=== PATIENT | female | born 2000 | race Caucasian/White ===

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

== ENCOUNTER 2021-06-17 15:41 | Emergency (ER) | payer MEDICAID ==
[~2021-06-17] VITALS: Ht 165.1 cm; Wt 119.2 kg
[~2021-06-17 15:41] MED LIST changes: +ARIP2TAB35 PO
[2021-06-17 15:50] VITALS: BP 138/79
--- NOTE | 2021-06-17 15:52 | PHYS DOC ---
Past History Past Medical History: Depression, Other Past Surgical History: No Surgical History, Other Smoking: Non-smoker Alcohol Use: None Drug Use: None Adult General HPI HPI Patient is a 21-year-old female presenting for right-sided lower back pain. Reports she was working at her job, [employer], where without any obvious trauma, mechanism of injury or other exposure she started experiencing right lower back pain after her shift. Reports pain is deep above her hip bone and focal to right lower back area without radiation. Timing of symptoms has been constant but exacerbates with certain twisting and positional movements. No red flag signs or symptoms of back pain such as fever, history of chronic steroid or IV drug use, unintentional weight loss, cancer, bladder and/or bowel incontinence etc. Review of Systems Review of Systems Fourteen body systems of review of systems have been reviewed. See HPI for pertinent positives and negative responses, other adamson all other systems are negative, non-pertinent or non-contributory Allergies Allergies Allergies Coded Allergies Type Severity Reaction Last Updated Verified No Known Drug Allergies 06/03/13 No Physical Exam Physical Exam Constitutional: Well developed, well nourished and obese, no acute distress, non-toxic appearance. HENT: Normocephalic, atraumatic, bilateral external ears normal, oropharynx moist, no oral exudates, nose normal. Eyes: PERRLA, EOMI, conjunctiva normal, no discharge. Neck: Normal range of motion, no tenderness, supple, no stridor. Cardiovascular: Heart rate regular, sinus rhythm, no murmurs rubs or gallops Lungs & Thorax: Bilateral breath sounds clear to auscultation Abdomen: Bowel sounds normal, soft and protuberant, no tenderness, no masses, no pulsatile masses. Nonsurgical abdomen, no peritoneal signs Skin: Warm, dry, no erythema, no rash. Back: No midline tenderness or step-off, no CVA tenderness. Palpable tenderness present to right paralumbar muscle superior to sacrum. Negative straight leg raise. Extremities: No tenderness, no cyanosis, no clubbing, ROM intact, no edema. Neurologic: Alert and oriented X 3, no saddle anesthesia, 2+ patellar reflexes to bilateral lower extremities, normal motor & sensory function, no focal deficits noted. Psychologic: Affect normal, judgement normal, mood normal. Current Patient Data Vital Signs Vital Signs Date Time Temp Pulse Resp B/P (MAP) Pulse Ox O2 Delivery O2 Flow Rate FiO2 06/17/21 15:50 98.2 87 18 138/79 (98) 100 Vital Signs Date Time Temp Pulse Resp B/P (MAP) Pulse Ox O2 Delivery O2 Flow Rate FiO2 06/17/21 15:50 98.2 87 18 138/79 (98) 100 EKG EKG [] Heart Score C/O Chest Pain: No Risk Factors: Risk Factors: DM, Current or recent (<one month) smoker, HTN, HLP, family history of CAD, obesity. Risk Scores: Risk Factors: DM, Current or recent (<one month) smoker, HTN, HLP, family history of CAD, obesity. Course & Med Decision Making Course & Med Decision Making ABCs, history and physical examination non-concerning. There are no red flag signs of back pain present. I have low suspicion for malignancy/mets, acute Spinal Fracture, Vertebral Osteomyelitis, Epidural Abscess, Infected or Obstructing Kidney Stone. Their presentation appears most likely to be secondary to non-emergent musculoskeletal etiology vs non-emergent disc herniation. ED Workup: Defer imaging and labwork for outpatient follow up at this time. IM orphenadrine administered with instructions for NSAIDs and/or Tylenol for pain control with new prescription for muscle relaxer Disposition: Discharge. Strict return precautions discussed with patient with full understanding. Advised patient to follow up promptly with primary care provider Tiffanie Disclaimer Tiffanie Disclaimer This electronic medical record was generated, in whole or in part, using a voice recognition dictation system. Departure Departure: Impression: Primary Impression: Back pain Disposition: HOME / SELF CARE / HOMELESS Condition: STABLE Referrals: PCPNATALIE (PCP) Patient Instructions: Back Exercises, Back Pain, Adult Additional Instructions: You were evaluated in the Emergency Department today for back pain. Your evaluation suggests no acute abnormalities which require further intervention at this time. Your pain is most likely due to to a musculoskeletal cause that should improve with supportive care. - Move around as tolerated but avoiding heavy lifting. ``Bed rest is not recommended nor is it the best treatment for low back pain. - Medications will help control your discomfort: - -Ibuprofen (800 mg every 8 hours for pain) with food. - -Tylenol - Do not drink alcohol, drive a car, operate machinery, or get up on ladders or heights when taking any prescribed pain medications. - Do not drive home if you received prescribed pain medications here in the ED. Return to the ED immediately if you develop any of the following problems: - Leaking urine or difficulty urinating; - Inability to control your bowels; - New numbness or weakness in your legs or numbness between your legs; - Inability to walk - Fever Scripts Cyclobenzaprine Hcl (CYCLOBENZAPRINE HCL) 5 Mg Tablet 1 TAB PO QHS for muscle spasms, #15 TAB Prov: JESSICA MANCUSO DO 06/17/21 JESSICA MANCUSO DO Jun 17, 2021 15:52
[2021-06-17] MEDS ORDERED: ORPHENADRINE CITRATE 60 MG/2 ML VIAL. IM ONE (16:15)
[2021-06-17] MEDS ORDERED: CYCL5TAB PO (16:16)
[2021-06-18] MEDS ORDERED: CEPH500C PO (15:01)
== END 2021-06-17 16:38 | disposition home or self-care (01) ==
LOC: ER 15:41
DX: M54.59 Other low back pain (principal)
CPT/HCPCS: 96372; 99283; J2360

== ENCOUNTER 2021-06-18 13:36 | Emergency (ER) | payer MEDICAID ==
[~2021-06-18] VITALS: Ht 165.1 cm; Wt 125.5 kg
[~2021-06-18 13:36] MED LIST changes: +CYCL5TAB PO
[2021-06-18] MEDS ORDERED: KETOROLAC 60 MG/2 ML VIAL. IM ONE (14:00)
[2021-06-18] MEDS ORDERED: ORPHENADRINE CITRATE 60 MG/2 ML VIAL. IM ONE (14:00)
--- NOTE | 2021-06-18 14:13 | PHYS DOC ---
Past History Past Medical History: Depression, Other Additional Past Medical Histor: pots (STUART ALBERTS APRN) Past Surgical History: No Surgical History (STUART ALBERTS APRN) Smoking: Non-smoker Alcohol Use: None Drug Use: None (STUART ALBERTS APRN) General Adult EDM: Chief Complaint: BACK PAIN OR INJURY HPI: HPI: Patient is a 21-year-old female who presents to the emergency department for right lower back pain that radiates into her buttock and down her leg. Patient reports that her symptoms started 2 days ago. Patient was seen in this emergency department yesterday and given muscle relaxer. She reports that she took the muscle relaxer last night but not today. She states that that in addition with Tylenol ibuprofen is not helping her pain. She rates her pain 6 out of 10. Last menstrual period was May 09 she reports no chance of . Patient denies any trauma, saddle anesthesias or loss of bowel or bladder, dysuria, hematuria. (STUART ALBERTS APRN) Review of Systems: Review of Systems: Constitutional: negative unless reported in HPI Eyes: negative unless reported in HPI HENT: negative unless reported in HPI Respiratory: negative unless reported in HPI Cardiovascular: negative unless reported in HPI GI: negative unless reported in HPI : negative unless reported in HPI Musculoskeletal: negative unless reported in HPI Integument: negative unless reported in HPI Neurologic: negative unless reported in HPI Endocrine: negative unless reported in HPI Lymphatic: negative unless reported in HPI Psychiatric: negative unless reported in HPI (STUART ALBERTS APRN) Allergies: Allergies: Allergies Coded Allergies Type Severity Reaction Last Updated Verified No Known Drug Allergies 06/17/21 No (STUART ALBERTS APRN) Physical Exam: PE: Constitutional: Well developed, well nourished, no acute distress, non-toxic appearance. [] HENT: Normocephalic, atraumatic, bilateral external ears normal, oropharynx m oist, no oral exudates, nose normal. [] Eyes: PERRL, EOMI, conjunctiva normal, no discharge. [] Neck: Normal range of motion, no bony spinal tenderness, no step-offs or deformities supple, no stridor. [] Cardiovascular: Normal peripheral perfusion Lungs & Thorax: Normal work of breathing, no tachypnea Abdomen: Obese Skin: Warm, dry, no erythema, no rash. [] Back: No spinal tenderness, right paraspinal lumbar tenderness with palpation, muscle spasm noted, positive right straight leg raise Extremities: No tenderness, no cyanosis, no clubbing, ROM intact, no edema. [] Neurologic: Alert and oriented X 3, normal motor function, normal sensory function, no focal deficits noted. [] Psychologic: Affect normal, judgement normal, mood normal. [] (STUART ALBERTS APRN) Current Patient Data: Labs: Laboratory Tests Test 06/18/21 14:00 06/18/21 14:08 Urine Collection Type Clean catch Urine Color Yellow Urine Clarity Hazy Urine pH 7.5 Urine Specific [place] 1.020 Urine Protein Neg Urine Glucose (UA) Neg mg/dL Urine Ketones (Stick) Neg mg/dL Urine Blood Neg Urine Nitrite Neg Urine Bilirubin Neg Urine Urobilinogen Dipstick 0.2 mg/dL Urine Leukocyte Esterase Trace Urine RBC 0 /HPF Urine WBC 1-4 /HPF Urine Squamous Epithelial Cells Mod /LPF Urine Amorphous Sediment Present /HPF Urine Bacteria Few /HPF Bedside Urine HCG, Qualitative hcg negative Current Medications Medications (Trade) Dose Ordered Sig/James Route PRN Reason Start Time Stop Time Status Last Admin Dose Admin Ketorolac Tromethamine (Toradol Im) 60 mg 1X ONCE IM 06/18/21 14:00 06/18/21 14:01 DC 06/18/21 14:13 Orphenadrine Citrate (Norflex) 60 mg 1X ONCE IM 06/18/21 14:00 06/18/21 14:01 DC 06/18/21 14:13 Vital Signs: Vital Signs Date Time Temp Pulse Resp B/P (MAP) Pulse Ox O2 Delivery O2 Flow Rate FiO2 06/18/21 13:40 98.3 84 20 137/76 (96) 99 Room Air (STUART ALBERTS APRN) EKG: EKG: [] (STUART ALBERTS APRN) Radiology/Procedures: Radiology/Procedures: []PROCEDURE: CT LUMBAR SPINE WO CONTRAST PQRS Compliance Statement: One or more of the following individualized dose reduction techniques were utilized for this examination: 1. Automated exposure control 2. Adjustment of the mA and/or kV according to patient size 3. Use of iterative reconstruction technique CT LUMBAR SPINE WO Clinical Indication: Reason: low back pain Comparison: None. TECHNIQUE: Helical CT imaging of the lumbar spine is performed without IV contrast. Findings: There is transitional lumbosacral anatomy. What is considered L5 is sacralized on the right. There is transitional appearance of what will be considered T12. There is no acute fracture or malalignment. The disc spaces are maintained. There is anterior superior endplate spurring of L4. L4/L5: There is a central disc protrusion that abuts the ventral thecal sac. There is no more than mild central canal stenosis. The neural foramina are patent. The central canal and neural foramina are otherwise patent in the lumbar spine. The lung bases are clear. IMPRESSION: No acute fracture or malalignment of the lumbar spine. Electronically signed by: Steve Ochoa MD (06/18/2021 2:52 PM) [facility] DICTATED AND SIGNED BY: STEVE OCHOA MD DATE: 06/18/211441 CC: STUART ALBERTS APRN; PCP,NO ~MTH0 0 (STUART ALBERTS APRN) Heart Score: C/O Chest Pain: N/A Risk Factors: Risk Factors: DM, Current or recent (<one month) smoker, HTN, HLP, family history of CAD, obesity. Risk Scores: Score 0 - 3: 2.5% MACE over next 6 weeks - Discharge Home Score 4 - 6: 20.3% MACE over next 6 weeks - Admit for Clinical Observation Score 7 - 10: 72.7% MACE over next 6 weeks - Early Invasive Strategies (STUART ALBERTS APRN) Course & Med Decision Making: Course & Med Decision Making Pertinent Labs and Imaging studies reviewed. (See chart for details) [] Patient presents to the emergency department for right lower back pain that radiates into her buttock and down her leg that started 2 days ago. She denies any trauma, urinary symptoms, cauda equina symptoms. Patient was seen in this emergency department yesterday and discharged home with a muscle relaxer that she did not take. Patient is work-up in the ER consisted of urinalysis and CT imaging of lumbar spine that showed no acute findings. Urinalysis showed trace amount of leukocytes, 1-4 white blood cells and few bacteria therefore she will be treated with an antibiotic. Patient treated with Toradol and muscle relaxer. Patient advised to continue take anti-inflammatory medications at home and her muscle relaxer as previously prescribed. I discussed with patient all findings and diagnostic testing as well as the need to follow-up with PCP for further evaluation and treatment or return to the ER if any new or worsening symptoms. Strict return precautions were also discussed at length. Patient voiced understanding and agreement with the plan. Patient is hemodynamically stable at the time of disposition. (STUART ALBERTS APRN) Course & Med Decision Making I was the Attending physician on the above date of service of this patient. This patient was evaluated, examined, treated, and dispositioned from the emergency department by the mid-level practitioner. Although I was working at the time , no assistance was requested. Electronically signed, Jessica Mancuso DO (JESSICA MANCUSO DO) Tiffanie Disclaimer: Dragrosario Disclaimer: This electronic medical record was generated, in whole or in part, using a voice recognition dictation system. (STUART ALBERTS APRN) Departure Departure: Impression: Primary Impression: Back pain Qualified Codes: M54.41 - Lumbago with sciatica, right side Additional Impression: Urinary tract infection Qualified Codes: N30.00 - Acute cystitis without hematuria Disposition: HOME / SELF CARE / HOMELESS Condition: GOOD Referrals: PCP,NO (PCP) Patient Instructions: Sciatica, Urinary Tract Infection Additional Instructions: You were seen in the emergency department for right lower back pain that radiates into your buttock. These findings are consistent with sciatica. Treatment for sciatica includes NSAIDs like ibuprofen or naproxen and a muscle relaxer which you were prescribed yesterday. Please take this as directed. You are also noted to have a urinary tract infection which will be treated with an antibiotic. Please start and finish the antibiotic completely. Increase your fluids. Avoid any bladder irritants like caffeine, sugary beverages or alcohol. Follow-up with your primary care provider on Sunday regarding your ER visit. Return to the emergency department if you develop any trauma, worsening of your pain, high fevers refractory to treatment, abdominal pain, intractable nausea or vomiting, inability to bear weight or walk, loss of bowel or bladder, numbness or tingling in your groin or down your legs. Scripts Cephalexin (KEFLEX) 500 Mg Capsule 1 CAP PO BID for uti for 7 Days, #14 CAP 0 Refills Prov: STUART ALBERTS APRN 06/18/21 STUART ALBERTS APRN Jun 18, 2021 14:13 JESSICA MANCUSO DO Jun 18, 2021 15:09
[2021-06-18 14:27] LABS: AMORPHOUS SEDIMENT,UR PRESENT /HPF; BACTERIA,URINE FEW /HPF (0-FEW); BILIRUBIN,URINE NEG (NEG); CLARITY,URINE HAZY; COLOR,URINE YELLOW; GLUCOSE,URINE NEG (NEG); NITRITE,URINE NEG (NEG); RBC,URINE 0 /HPF (0-2); SQUAMOUS EPITHELIAL CELL,UR MOD /LPF; UROBILINOGEN,URINE 0.2 mg/dL (0.2 mg/dL)
--- NOTE | 2021-06-18 14:55 | RAD ---
PQRS Compliance Statement: One or more of the following individualized dose reduction techniques were utilized for this examinat ion: 1. Automated exposure control 2. Adjustment of the mA and/or kV according to patient size 3. Use of iterative reconstruction technique CT LUMBAR SPINE WO Clinical Indication: Reason: low back pain Comparison: None. TECHNIQUE: Helical CT imaging of the lumbar spine is performed without IV contrast. Findings: There is transitional lumbosacral anatomy. What is considered L5 is sacralized on the right. There is transitional appearance of what will be considered T12. There is no acute fracture or malalignment. The disc spaces are maintained. There is anterior superior endplate spurring of L4. L4/L5: There is a central disc protrusion that abuts the ventral thecal sac. There is no more than mi ld central canal stenosis. The neural foramina are patent. The central canal and neural foramina are otherwise patent in the lumbar spine. The lung bases are clear. IMPRESSION: No acute fracture or malalignment of the lumbar spine. Electronically signed by: Steve Ochoa MD (06/18/2021 2:52 PM) [facility]
[2021-06-18] MEDS ORDERED: CEPH500C PO (15:01)
[2021-06-18 15:05] VITALS: BP 144/86
== END 2021-06-18 15:05 | disposition home or self-care (01) ==
LOC: ER 13:36
DX: N30.00 Acute cystitis without hematuria (principal); M54.41 Lumbago with sciatica, right side
CPT/HCPCS: 72131; 81001; 81025; 87086; 96372; 99284; J1885; J2360